=== PATIENT | female | born 1945 | race Caucasian/White ===

== ENCOUNTER 2022-08-03 12:51 | Observation (INO) ==
[2022-08-03 13:11] LABS: ABS Eosinophils 0.2 10^3/ul (0-0.6); ABS Lymphocytes 2.3 10^3/ul (1.0-4.8); ABS Monocytes 0.7 10^3/ul (0-0.8); ABS Neutrophils 4.1 10^3/ul (1.5-7.7); Eosinophil % 2.8 %; Hematocrit 42 % (35-47); Hemoglobin 13.7 g/dL (12.0-16.0); Lymphocyte % 31.6 %; Mean Corpuscular HGB Conc 33 g/dL (31-36); Mean Corpuscular Hemoglobin 30 pg (27-31); Mean Corpuscular Volume 92 fL (80-97); Mean Platelet Volume 7.8 fL (7.4-10.4); Platelet Count 282 10^3/uL (150-450); Red Blood Count 4.55 10^6 /uL (3.70-4.87); Red Cell Distribution Width 13 % (10-15); White Blood Count 7.3 10^3/uL (3.5-10.8)
[2022-08-03 13:16] LABS: INR 0.99 (0.89-1.11)
[2022-08-03 13:34] LABS: High Sens Troponin Baseline < 3 pg/mL (<15)
[2022-08-03 13:53] LABS: ALT 20 U/L (7-52); AST 26 U/L (13-39); Albumin 4.1 g/dL (3.2-5.2); Albumin/Globulin Ratio 1.4 (1-3); Alkaline Phosphatase 49 U/L (35-149); Anion Gap 6 mmol/L (2-11); Blood Urea Nitrogen 13 mg/dL (6-24); CO2 Carbon Dioxide 28 mmol/L (22-32); Calcium 9.7 mg/dL (8.6-10.3); Chloride 100 mmol/L (101-111); Globulin 2.9 g/dL (2-4); Glucose 93 mg/dL (70-100); Potassium 4.3 mmol/L (3.5-5.0); Sodium 134 mmol/L (135-145); eGFR CKD-EPI 91.9 (>60)
[2022-08-03] MEDS ORDERED: Acetaminophen IV 1 GM/100ML 1,000 MG/100 ML BAG IV ONE (14:31)
[2022-08-03] MEDS ORDERED: Cyclobenzaprine 5 mg TAB (NF) PO ONE (14:32)
[2022-08-03 14:50] LABS: High Sensitivity Troponin 1 Hr < 3 pg/mL (<15)
[2022-08-03] MEDS ORDERED: Lidocaine PATCH 5% PATCH TRANSDERM ONE (14:58)
[2022-08-03] MEDS ORDERED: Iohexol 350 (CONTRAST) 500 ML MDV IV ONE (15:21)
[2022-08-03] MEDS ORDERED: Morphine 10 MG/ML VIAL (1 ml) IV ONE (16:34)
[2022-08-03] MEDS ORDERED: oxyCODONE/Acetamin 5/325 mg TAB PO ONE (18:10)
[2022-08-03] MEDS ORDERED: NS 0.9% 500 ml BAG 500 ML IV ONE (18:31)
[2022-08-03] MEDS ORDERED: Atropine 0.1 MG/ML 10 ml SYR (1 mg) ONE (18:39)
[2022-08-03] MEDS ORDERED: Atropine 1 MG/ML INJ 1 ML VIAL IV PUSH ONE (18:52)
[2022-08-03] MEDS ORDERED: Enoxaparin 40 MG/0.4 ML SYR SUBCUT SCH (20:00)
[2022-08-03] MEDS ORDERED: Morphine 2 MG/ML SYRINGE IV PRN (21:02)
[2022-08-04 05:02] LABS: ABS Basophils 0.1 10^3/ul (0-0.2); ABS Eosinophils 0.2 10^3/ul (0-0.6); ABS Lymphocytes 3.2 10^3/ul (1.0-4.8); ABS Monocytes 0.6 10^3/ul (0-0.8); ABS Neutrophils 4.9 10^3/ul (1.5-7.7); Hematocrit 38 % (35-47); Hemoglobin 12.8 g/dL (12.0-16.0); Mean Corpuscular HGB Conc 33 g/dL (31-36); Mean Corpuscular Hemoglobin 31 pg (27-31); Mean Corpuscular Volume 92 fL (80-97); Mean Platelet Volume 7.9 fL (7.4-10.4); Platelet Count 265 10^3/uL (150-450); Red Blood Count 4.17 10^6 /uL (3.70-4.87); Red Cell Distribution Width 13 % (10-15); White Blood Count 8.9 10^3/uL (3.5-10.8)
[2022-08-04 05:49] LABS: Calcium 8.7 mg/dL (8.6-10.3); Magnesium 1.6 mg/dL (1.9-2.7); Potassium 3.9 mmol/L (3.5-5.0); eGFR CKD-EPI 93.7 (>60)
[2022-08-04] MEDS ORDERED: Potassium Chlor 20 meq TAB.ER PO SCH (09:00)
[2022-08-04 11:46] LABS: High Sensitivity Troponin 3 Hr 3 pg/mL (<15)
[2022-08-04 12:23] VITALS: BP 126/81
== END 2022-08-04 14:50 | disposition home or self-care (01) ==
LOC: ED 12:51 → EDHOLD 12:51 → ICU 23:16
PROVIDERS: ADMIT Internal Medicine; ATTEND Internal Medicine